=== PATIENT | female | born 1995 | race Asian ===

== ENCOUNTER 2017-03-09 22:03 | Emergency (ER) | payer OTHER ==
[~2017-03-09 22:03] MED LIST: AMOX500C PO; HYDR-971 PO; LORA5SOL7 PO; METO25TA9 PO; MULT-246 PO; NORE1TAB48 PO; birth control
[2017-03-09 22:33] VITALS: BP 147/96
--- NOTE | 2017-03-09 22:43 | PHYS DOC ---
Past History Past Medical History: No Pertinent History, Other Past Surgical History: No Surgical History Smoking: Non-smoker Alcohol Use: None Drug Use: None Adult General Chief Complaint Chief Complaint: Neck Pain HPI HPI Patient is a 21 year old FEMALE who presents with nonspecific URI symptoms. She states that a week ago she had a sore throat and that it was "scratchy." She had ear pain and a dull headache off and on. No fever. She has some upper abdominal pain "where my spleen is." She has had mono before. 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 No vomiting, no diarrhea. No urinary complaints. Tonight the front of her neck was hurting. She has no limitation in her ROM. No swelling. Review of Systems Review of Systems Constitutional: Denies fever or chills Eyes: Denies change in visual acuity, redness, or eye pain HENT: see HPI Respiratory: Denies cough or shortness of breath Cardiovascular: No chest pain. GI: Left upper abdominal pain, No nausea, vomiting, bloody stools or diarrhea : Denies dysuria or hematuria Musculoskeletal: Denies back pain or joint pain Integument: Denies rash or skin lesions Neurologic: Denies headache, focal weakness or sensory changes Allergies Allergies Allergies Coded Allergies Type Severity Reaction Last Updated Verified acetaminophen Allergy Severe pt gets violent 01/27/15 No oxycodone Allergy Severe pt gets violent 01/27/15 No Physical Exam Physical Exam Constitutional: Well developed, well nourished, no acute distress, non-toxic appearance. HENT: Normocephalic, atraumatic, bilateral external ears normal, TM dull bilaterally but no erythema. oropharynx moist, no oral exudates, nose normal. Eyes: PERRLA, EOMI, conjunctiva normal, no discharge. Neck: Normal range of motion, no tenderness, supple, no stridor. Supple; no meningismus. Minimal cervical chain adenopathy. Cardiovascular:Heart rate regular rhythm, no murmur Lungs & Thorax: Bilateral breath sounds clear to auscultation Abdomen: Bowel sounds normal, soft, no tenderness, no masses, no pulsatile masses. Skin: Warm, dry, no erythema, no rash. Back: No tenderness, no CVA tenderness. Extremities: No tenderness, no cyanosis, no clubbing, ROM intact, no edema. Neurologic: Alert and oriented X 3, normal motor function, normal sensory function, no focal deficits noted. Psychologic: Affect normal, judgement normal, mood normal. Current Patient Data Vital Signs Vital Signs Date Time Temp Pulse Resp B/P (MAP) Pulse Ox O2 Delivery O2 Flow Rate FiO2 03/09/17 22:33 98.2 20 97 Room Air Lab Results Laboratory Tests Test 03/09/17 22:48 03/09/17 22:57 03/09/17 23:00 Urine Collection Type Unknown Urine Color Yellow Urine Clarity Clear Urine pH 7.0 Urine Specific Robbins 1.015 Urine Protein Neg Urine Glucose (UA) Neg mg/dL Urine Ketones (Stick) Neg mg/dL Urine Blood Trace Urine Nitrite Neg Urine Bilirubin Neg Urine Urobilinogen Dipstick 0.2 mg/dL Urine Leukocyte Esterase Neg Urine RBC 0 /HPF Urine WBC 0 /HPF Urine Squamous Epithelial Cells Few /LPF Urine Bacteria Few /HPF Bedside Urine HCG, Qualitative hcg negative White Blood Count 7.6 x10^3/uL Red Blood Count 4.40 x10^6/uL Hemoglobin 13.6 g/dL Hematocrit 40.3 % Mean Corpuscular Volume 91 fL Mean Corpuscular Hemoglobin 31 pg Mean Corpuscular Hemoglobin Concent 34 g/dL Red Cell Distribution Width 12.6 % Platelet Count 225 x10^3/uL Neutrophils (%) (Auto) 70 % Lymphocytes (%) (Auto) 23 % Monocytes (%) (Auto) 5 % Eosinophils (%) (Auto) 2 % Basophils (%) (Auto) 1 % Neutrophils # (Auto) 5.3 x10^3uL Lymphocytes # (Auto) 1.8 x10^3/uL Monocytes # (Auto) 0.4 x10^3/uL Eosinophils # (Auto) 0.1 x10^3/uL Basophils # (Auto) 0.0 x10^3/uL Sodium Level 142 mmol/L Potassium Level 3.7 mmol/L Chloride Level 105 mmol/L Carbon Dioxide Level 28 mmol/L Anion Gap 9 Blood Urea Nitrogen 10 mg/dL Creatinine 0.9 mg/dL Estimated GFR (Cockcroft-Gault) 79.0 Glucose Level 97 mg/dL Calcium Level 8.9 mg/dL Total Bilirubin 0.3 mg/dL Direct Bilirubin 0.1 mg/dL Aspartate Amino Transf (AST/SGOT) 11 U/L Alanine Aminotransferase (ALT/SGPT) 12 U/L Alkaline Phosphatase 60 U/L Total Protein 7.7 g/dL Albumin 4.2 g/dL Heterophil Agglutinins Positive Laboratory Tests Test 03/09/17 22:57 03/09/17 23:00 Bedside Urine HCG, Qualitative hcg negative White Blood Count 7.6 x10^3/uL Red Blood Count 4.40 x10^6/uL Hemoglobin 13.6 g/dL Hematocrit 40.3 % Mean Corpuscular Volume 91 fL Mean Corpuscular Hemoglobin 31 pg Mean Corpuscular Hemoglobin Concent 34 g/dL Red Cell Distribution Width 12.6 % Platelet Count 225 x10^3/uL Neutrophils (%) (Auto) 70 % Lymphocytes (%) (Auto) 23 % Monocytes (%) (Auto) 5 % Eosinophils (%) (Auto) 2 % Basophils (%) (Auto) 1 % Neutrophils # (Auto) 5.3 x10^3uL Lymphocytes # (Auto) 1.8 x10^3/uL Monocytes # (Auto) 0.4 x10^3/uL Eosinophils # (Auto) 0.1 x10^3/uL Basophils # (Auto) 0.0 x10^3/uL Course & Med Decision Making Course & Med Decision Making Pertinent Labs studies reviewed. (See chart for details) Evaluated patient. She has vague non specific symptoms. Does NOT appear toxic. No evidence of meningitis. 2345 PM: Lab back and reviewed. All normal except for mono positive. She has had it before so unable to tell if acute infection. However her complaints would fit this. GIven instructions for non specific viral syndrome and mono precautions. LFT normal. Lab normal. Dragon Disclaimer Dragon Disclaimer This chart was dictated in whole or in part using Voice Recognition software in a busy, high-work load, and often noisy Emergency Department environment. It may contain unintended and wholly unrecognized errors or omissions. Departure Departure: Impression: Primary Impression: Viral syndrome Disposition: 01 HOME, SELF-CARE Condition: GOOD Referrals: PCP,UNKNOWN (PCP) Patient Instructions: Infectious Mononucleosis, Viral Syndrome MOLINA ESCOBAR MD Mar 09, 2017 22:42
[2017-03-09 23:16] LABS: BASO % 1 % (0-3); EOS # 0.1 x10^3/uL (0.0-0.7); EOS % 2 % (0-3); HEMATOCRIT 40.3 % (36.0-47.0); HEMOGLOBIN 13.6 g/dL (12.0-15.5); LYMPH # 1.8 x10^3/uL (1.0-4.8); LYMPH % 23 % (24-48); MEAN CORPUSCULAR HEMOGLOBIN 31 pg (25-35); MEAN CORPUSCULAR HGB CONC 34 g/dL (31-37); MEAN CORPUSCULAR VOLUME 91 fL (79-100); MONO # 0.4 x10^3/uL (0.0-1.1); MONO % 5 % (0-9); NEUT # 5.3 x10^3uL (1.8-7.7); NEUT % 70 % (31-73); PLATELET COUNT 225 x10^3/uL (140-400); RED CELL DISTRIBUTION WIDTH 12.6 % (11.5-14.5); WHITE BLOOD COUNT 7.6 x10^3/uL (4.0-11.0)
[2017-03-09 23:29] LABS: BACTERIA,URINE FEW /HPF (0-FEW); BILIRUBIN,URINE NEG (NEG); CLARITY,URINE CLEAR; COLOR,URINE YELLOW; GLUCOSE,URINE NEG (NEG); NITRITE,URINE NEG (NEG); RBC,URINE 0 /HPF (0-2); SQUAMOUS EPITHELIAL CELL,UR FEW /LPF; UROBILINOGEN,URINE 0.2 mg/dL (0.2 mg/dL); WBC,URINE 0 /HPF (0-4)
[2017-03-09 23:32] LABS: ALBUMIN 4.2 g/dL (3.4-5.0); CALCIUM 8.9 mg/dL (8.5-10.1); CREATININE 0.9 mg/dL (0.6-1.0); DIRECT BILIRUBIN 0.1 mg/dL (0.0-0.2); MONONUCLEOSIS PATIENT POSITIVE (NEGATIVE); POTASSIUM 3.7 mmol/L (3.5-5.1); TOTAL BILIRUBIN 0.3 mg/dL (0.2-1.0); TOTAL PROTEIN 7.7 g/dL (6.4-8.2)
== END 2017-03-09 23:55 | disposition home or self-care (01) ==
LOC: ER 22:03
DX: B34.9 Viral infection, unspecified (principal); R10.12 Left upper quadrant pain; Z88.6 Allergy status to analgesic agent
CPT/HCPCS: 36415; 80048; 80076; 81001; 81025; 85027; 86308; 99284